=== PATIENT | male | born 1970 | race African-American/Black ===

== ENCOUNTER 2019-12-31 21:34 | Emergency (ER) | payer OTHER ==
[~2019-12-31] VITALS: Ht 172.7 cm; Wt 93.0 kg
--- NOTE | ~2019-12-31 | EKG ---
[facility] [place] [address] ELECTROCARDIOGRAM REPORT Name: ROSSY JOHNSON Room #: [facility]P [facility]ENTERFrancescoFrancesco#: [id number] Admission: 12/31/19 Attend Phys: Discharge: 01/01/20 Date of : 68 Report #: [id number] THIS REPORT FOR: cc: SHAGGY Bledsoe family physician/PCP SHAGGY - Ladi family physician/PCP Castillo Chong MD ~ THIS REPORT FOR: //name// [facility] ED Test Date: 2019-12-31 Test Time: 21:40:43 Pat Name: ROSSY JOHNSON Department: Room: Gender: Injection Moulding Machine Operator: : 1970 Requested By: Don Cabrera Order Number: [id number] MD: Measurements Intervals [place] Rate: 76 P: 50 SC: 162 QRS: 60 QRSD: 82 T: 56 QT: 368 QTc: 414 Interpretive Statements Sinus rhythm Borderline T abnormalities, lateral leads No previous ECG available for comparison [email or web address] By: 39 39 Epiphany Epiphany, MD /EPI
[~2019-12-31 21:34] MED LIST: IBUPROFEN 800800 MG PO; ULTRAM 50MG TAB50 MG PO; ZYRTEC
[2019-12-31 22:01] LABS: ABSOLUTE NEUTROPHILS 3.3 thou/uL (1.4-8.2); BASOPHILS 0.2 % (0.0-2.0); EOSINOPHILS 3.8 % (0.0-3.0); HEMATOCRIT 45.7 % (42.0-52.0); HEMOGLOBIN 15.3 gm/dL (14.0-18.0); LYMPHOCYTES 36.3 % (24.0-44.0); MCH 30.5 pg (26.0-34.0); MCHC 33.4 g/dL (28.0-37.0); MCV 91.2 fL (80.0-100.0); MONOCYTES 11.3 % (1.0-8.0); PLATELET COUNT 240 thou/uL (150-400); POLYS 48.4 % (36.0-66.0); RBC 5.01 mil/uL (4.50-6.00); RDW 12.2 % (10.5-14.5); WBC 6.9 thou/uL (4.0-11.0)
[2019-12-31 22:08] LABS: ANION GAP 7 mmol/L (7-16); BUN 7 mg/dL (7-18); CALCIUM 9.2 mg/dL (8.5-10.1); CHLORIDE 106 mmol/L (98-107); CO2 31 mmol/L (21-32); CREATININE 1.6 mg/dL (0.7-1.3); GLUCOSE 106 mg/dL (74-106); POTASSIUM 3.6 mmol/L (3.5-5.1); SODIUM 144 mmol/L (136-145)
[2019-12-31 22:17] LABS: TROPONIN-I <0.06 ng/mL (<0.06)
[2020-01-01 01:48] VITALS: BP 140/93
== END 2020-01-01 01:49 | disposition home or self-care (01) ==
LOC: ER 21:34
PROVIDERS: Emergency Medicine
DX: R07.89 Other chest pain (principal); Z79.899 Other long term (current) drug therapy